=== PATIENT | female | born 1950 | race Caucasian/White ===

== ENCOUNTER 2018-11-02 02:01 | Inpatient (IN) | payer BC, MEDICARE, OTHER ==
--- NOTE | 2018-11-02 02:46 | ED ---
Nausea/Vomiting/Diarrhea HPI - General Chief complaint: Nausea/Vomiting/Diarrhea Stated complaint: nauseous, vomiting Time Seen by Provider: 11/02/18 02:36 Source: patient Mode of arrival: wheelchair Limitations: no limitations - History of Present Illness Initial comments: Angela is a pleasant 67-year-old female presents the emergency department today for evaluation of nausea vomiting and concern for dehydration and narcotic withdrawal. Patient reports that on Saturday she was getting her hair done when another person at the salon seem to have a GI illness. She reports she came home at night and developed nausea and vomiting. Patient reports she's been vomiting since Saturday. She states that today she has not been able to hold down any by mouth intake, she continues taking despite not being able to vomit. Patient states that she takes [place] and morphine orally daily and is concerned she may be withdrawing because she hasn't been able to take her medications and multiple days. She has no history of GI illness, she has no history of inflammatory or irritable bowel. She has no history of any surgeries in the abdomen. - Related Data Previous Rx's Medication Instructions Recorded Ondansetron [Zofran ODT] 4 mg PO Q8HR #12 tab 11/02/18 Allergies Allergy/AdvReac Type Severity Reaction Status Date / Time aspirin Allergy Rash/Hives Verified 11/02/18 03:24 Review of Systems ROS Statement: Those systems with pertinent positive or pertinent negative responses have been documented in the HPI. ROS Other: All systems not noted in ROS Statement are negative. Past Medical History Past Medical History: Fibromyalgia, Osteoarthritis (OA) Additional Past Medical History / Comment(s): DJD History of Any Multi-Drug Resistant Organisms: None Reported Past Surgical History: Hysterectomy, Tonsillectomy Past Psychological History: Depression Smoking Status: Former smoker Past Alcohol Use History: None Reported Past Drug Use History: None Reported General Exam - General Exam Comments Initial Comments: Physical Exam GENERAL: Mildly dehydrated uncomfortable appearance HENT: Normocephalic, Atraumatic. EYES: PERRL, EOMI PULMONARY: Unlabored respirations. No audible rales rhonchi or wheezing was noted. CARDIOVASCULAR: There is a regular rate and rhythm without any murmurs gallops or rubs. ABDOMEN: Soft and nontender with normal bowel sounds. SKIN: Skin is clear with no lesions or rashes and otherwise unremarkable. : Deferred NEUROLOGIC: Patient is alert and oriented x3. Moving all extremities spontaneously MUSCULOSKELETAL: Normal extremities with adequate strength and full range of motion. No lower extremity swelling or edema. No calf tenderness. PSYCHIATRIC: Normal psychiatric evaluation. Limitations: no limitations Limitations: no limitations Course Vital Signs 11/02/18 11/02/18 02:14 06:00 Temperature 98.3 F 100.3 F H Pulse Rate 102 H 90 Respiratory 20 17 Rate Blood Pressure 193/93 O2 Sat by Pulse 98 96 Oximetry Medical Decision Making - Medical Decision Making The patient was seen and evaluated history is obtained from patient Patient with 4 days of nausea and vomiting, concern for dehydration as well as narcotic withdrawal Labs with leukocytosis, elevated hemoglobin and hematocrit consistent with hemoconcentration Bili and lipase are mildly elevated however patient is not having any abdominal pain just nausea and vomiting Results were discussed with the patient, I offered the patient observation for further evaluation including possible ultrasound of the abdomen, continued fluids and IV narcotics however patient would much prefer to be discharged home and she is feeling okay at this time. Patient vital signs were reviewed, she is hypertensive and temperature is elevated at 100.3. I again tried to encourage the patient to stay for further evaluation however she is unwilling. Given that the patient is likely withdrawing from her narcotics that additional dose of IV narcotics were given and IV fluid bolus was initiated. She received additional IV narcotics and IV fluids upon reevaluation she remains hypertensive. At this time patient is agreeable to admission to the hospital for further evaluation including ultrasound and continued IV fluids. - Lab Data Result diagrams: 11/02/18 02:52 11/02/18 02:52 Lab Results 11/02/18 11/02/18 11/02/18 Range/Units 02:52 02:52 04:55 WBC 19.8 H (3.8-10.6) k/uL RBC 5.47 H (3.80-5.40) m/uL Hgb 16.1 H (11.4-16.0) gm/dL Hct 47.0 H (34.0-46.0) % MCV 85.9 (80.0-100.0) fL MCH 29.4 (25.0-35.0) pg MCHC 34.2 (31.0-37.0) g/dL RDW 14.9 (11.5-15.5) % Plt Count 358 (150-450) k/uL Neutrophils % 82 % Lymphocytes % 11 % Monocytes % 5 % Eosinophils % 1 % Basophils % 0 % Neutrophils # 16.2 H (1.3-7.7) k/uL Lymphocytes # 2.2 (1.0-4.8) k/uL Monocytes # 1.0 (0-1.0) k/uL Eosinophils # 0.2 (0-0.7) k/uL Basophils # 0.0 (0-0.2) k/uL Sodium 136 L (137-145) mmol/L Potassium 3.5 (3.5-5.1) mmol/L Chloride 100 (98-107) mmol/L Carbon Dioxide 19 L (22-30) mmol/L Anion Gap 17 mmol/L BUN 16 (7-17) mg/dL Creatinine 0.54 (0.52-1.04) mg/dL Est GFR (CKD-EPI)AfAm >90 (>60 ml/min/1.73 sqM) Est GFR (CKD-EPI)NonAf >90 (>60 ml/min/1.73 sqM) Glucose 207 H (74-99) mg/dL Calcium 10.7 H (8.4-10.2) mg/dL Total Bilirubin 2.3 H (0.2-1.3) mg/dL AST 29 (14-36) U/L ALT 31 (9-52) U/L Alkaline Phosphatase 90 (38-126) U/L Total Protein 8.1 (6.3-8.2) g/dL Albumin 5.0 (3.5-5.0) g/dL Amylase 71 (30-110) U/L Lipase 317 H (23-300) U/L Urine Color Urine Appearance (Clear) Urine pH (5.0-8.0) Ur Specific [place] (1.001-1.035) Urine Protein (Negative) Urine Glucose (UA) (Negative) Urine Ketones (Negative) Urine Blood (Negative) Urine Nitrite (Negative) Urine Bilirubin (Negative) Urine Urobilinogen (<2.0) mg/dL Ur Leukocyte Esterase (Negative) Urine RBC (0-5) /hpf Urine WBC (0-5) /hpf Urine Bacteria (None) /hpf Urine Mucus (None) /hpf Influenza Type A RNA Not Detected (Not Detectd) Influenza Type B (PCR) Not Detected (Not Detectd) 11/02/18 Range/Units 06:15 WBC (3.8-10.6) k/uL RBC (3.80-5.40) m/uL Hgb (11.4-16.0) gm/dL Hct (34.0-46.0) % MCV (80.0-100.0) fL MCH (25.0-35.0) pg MCHC (31.0-37.0) g/dL RDW (11.5-15.5) % Plt Count (150-450) k/uL Neutrophils % % Lymphocytes % % Monocytes % % Eosinophils % % Basophils % % Neutrophils # (1.3-7.7) k/uL Lymphocytes # (1.0-4.8) k/uL Monocytes # (0-1.0) k/uL Eosinophils # (0-0.7) k/uL Basophils # (0-0.2) k/uL Sodium (137-145) mmol/L Potassium (3.5-5.1) mmol/L Chloride (98-107) mmol/L Carbon Dioxide (22-30) mmol/L Anion Gap mmol/L BUN (7-17) mg/dL Creatinine (0.52-1.04) mg/dL Est GFR (CKD-EPI)AfAm (>60 ml/min/1.73 sqM) Est GFR (CKD-EPI)NonAf (>60 ml/min/1.73 sqM) Glucose (74-99) mg/dL Calcium (8.4-10.2) mg/dL Total Bilirubin (0.2-1.3) mg/dL AST (14-36) U/L ALT (9-52) U/L Alkaline Phosphatase (38-126) U/L Total Protein (6.3-8.2) g/dL Albumin (3.5-5.0) g/dL Amylase (30-110) U/L Lipase (23-300) U/L Urine Color Yellow Urine Appearance Clear (Clear) Urine pH 6.5 (5.0-8.0) Ur Specific [place] 1.021 (1.001-1.035) Urine Protein 2+ H (Negative) Urine Glucose (UA) 3+ H (Negative) Urine Ketones 1+ H (Negative) Urine Blood Moderate H (Negative) Urine Nitrite Negative (Negative) Urine Bilirubin Negative (Negative) Urine Urobilinogen <2.0 (<2.0) mg/dL Ur Leukocyte Esterase Trace H (Negative) Urine RBC 6 H (0-5) /hpf Urine WBC 4 (0-5) /hpf Urine Bacteria Rare H (None) /hpf Urine Mucus Few H (None) /hpf Influenza Type A RNA (Not Detectd) Influenza Type B (PCR) (Not Detectd) Disposition Clinical Impression: Nausea and vomiting, Leukocytosis, Dehydration, HTN (hypertension), Narcotic withdrawal, Elevated bilirubin, Hyperglycemia Disposition: HOME SELF-CARE Condition: Stable Instructions (If sedation given, give patient instructions): Acute Nausea and Vomiting (ED) Prescriptions: Ondansetron [Zofran ODT] 4 mg PO Q8HR #12 tab Is patient prescribed a controlled substance at d/c from ED?: No Referrals: Teto Oneil MD [Primary Care Provider] - 1-2 days
[2018-11-02] MEDS ORDERED: SODIUM CHLORIDE 0.9% 1,000 ML IV ONE (02:56)
[2018-11-02] MEDS ORDERED: ONDANSETRON 4 MG/2 ML VIAL IVP STA (02:56)
[2018-11-02] MEDS ORDERED: FAMOTIDINE 20 MG/2 ML VIAL IV STA (02:56)
[2018-11-02] MEDS ORDERED: MORPHINE SULFATE 4 MG/ML SYRINGE IVP STA ×2 (02:58→06:01)
[2018-11-02 03:07] LABS: Basophils % (A) 0 %; Eosinophils # (A) 0.2 k/uL (0-0.7); Eosinophils % (A) 1 %; HGB 16.1 gm/dL (11.4-16.0); Lymphocytes # (A) 2.2 k/uL (1.0-4.8); Lymphocytes % (A) 11 %; MCH 29.4 pg (25.0-35.0); MCHC 34.2 g/dL (31.0-37.0); MCV 85.9 fL (80.0-100.0); Mean Platelet Volume 6.9; Monocytes % (A) 5 %; Neutrophils # (A) 16.2 k/uL (1.3-7.7); Neutrophils % (A) 82 %; Platelet Count 358 k/uL (150-450); RBC 5.47 m/uL (3.80-5.40); RDW 14.9 % (11.5-15.5); WBC 19.8 k/uL (3.8-10.6)
[2018-11-02 03:18] LABS: ALT 31 U/L (9-52); AST 29 U/L (14-36); Alkaline Phosphatase 90 U/L (38-126); Amylase 71 U/L (30-110); Anion Gap 17 mmol/L; Blood Urea Nitrogen 16 mg/dL (7-17); Calcium 10.7 mg/dL (8.4-10.2); Carbon Dioxide 19 mmol/L (22-30); Chloride 100 mmol/L (98-107); Glucose 207 mg/dL (74-99); Lipase 317 U/L (23-300); Potassium 3.5 mmol/L (3.5-5.1); Sodium 136 mmol/L (137-145); Total Bilirubin 2.3 mg/dL (0.2-1.3); Total Protein 8.1 g/dL (6.3-8.2)
--- NOTE | 2018-11-02 04:13 | XR ---
EXAM: XR Abdomen, 3 Views CLINICAL HISTORY: c/o nausea and vomiting X4 days TECHNIQUE: Multiple frontal views of the abdomen/pelvis were obtained. COMPARISON: No relevant prior studies available. FINDINGS: Intraperitoneal space: No definitive evidence of free air. Gastrointestinal tract: Nonspecific bowel gas pattern without evidence of obstruction. Bones/joints: Mild/moderate degenerative changes involving the osseous structures. Vasculature: Probable phleboliths within the pelvis. IMPRESSION: Nonspecific bowel gas pattern without evidence of obstruction.
[2018-11-02] MEDS ORDERED: METOCLOPRAMIDE 5 MG/ML 2 ML VIAL IVP STA (04:31)
[2018-11-02] MEDS ORDERED: diphenhydrAMINE 50 MG/ML 1 ML VIAL IVP STA (04:31)
[2018-11-02 06:27] LABS: Appearance,Urine Clear (Clear); Bacteria,Urine Rare /hpf; Bilirubin,Urine Negative (Negative); Blood,Urine Moderate (Negative); Color,Urine Yellow; Glucose,Urine (UA) 3+ (Negative); Ketones,Urine 1+ (Negative); Leukocyte Esterase,Urine Trace (Negative); Mucus,Urine Few /hpf; Nitrite,Urine Negative (Negative); PH, Urine 6.5 (5.0-8.0); Protein,Urine 2+ (Negative); RBC,Urine 6 /hpf (0-5); Specific Gravity,Urine 1.021 (1.001-1.035); Urobilinogen,Urine <2.0 mg/dL (<2.0); WBC,Urine 4 /hpf (0-5)
[2018-11-02] MEDS ORDERED: NALOXONE 0.4 MG/ML 1 ML VIAL IV PRN (06:47)
[2018-11-02] MEDS ORDERED: cloNIDine HCL 0.1 MG TAB PO STA (06:51)
[2018-11-02] MEDS ORDERED: cloNIDine 0.1 MG/24HR PATCH TRANSDERM SCH (07:30)
--- NOTE | 2018-11-02 07:44 | US ---
EXAMINATION TYPE: US abdomen complete DATE OF EXAM: 11/02/2018 COMPARISON: NONE CLINICAL HISTORY: Pain. Pt states N&V x 5 days EXAM MEASUREMENTS: Liver Length: 18.8 cm Gallbladder Wall: 0.2 cm CBD: 1.0 cm Right Kidney: 10.6 x 5.0 x 5.8 cm Left Kidney: 12.0 x 5.3 x 4.7 cm Visualized portions of aorta and IVC are normal. Pancreas: wnl, tail obscured by overlying bowel gas Liver: Enlarged, heterogeneous, difficult to penetrate, possible fatty sparing near GB Gallbladder: wnl Evidence for sonographic Navas's sign: No CBD: ?Dilated Spleen: Unable to visualize with certainty Right Kidney: Lobulated contour, otherwise appeared wnl Left Kidney: Lobulated contour, otherwise appeared wnl Upper IVC: wnl Abd Aorta: Distal portion gassed out Limited views of the pancreas is unremarkable. The liver is prominent measuring 19 cm. It is echogenic and likely fatty infiltrated. The gallbladder is unremarkable without evidence of cholelithiasis. The distal common hepatic duct me asures 1 cm which is dilated. The gallbladder wall measures 2 mm. There is no sonographic Navas's si gn. The spleen is not visualized. Both kidneys are unremarkable. Visualized portions of aorta and IVC are normal. IMPRESSION: 1. HEPATOMEGALY AND FATTY INFILTRATION OF THE LIVER. 2. PROMINENCE OF THE DISTAL COMMON HEPATIC DUCT. ERCP VERSUS MRCP WOULD BE SUGGESTED.
[2018-11-02] MEDS: MORPHINE SULFATE 4 MG/ML SYRINGE IV PRN ×2 (14:22→21:10)
[2018-11-02] MEDS: SODIUM CHLORIDE 0.9% 1,000 ML IV SCH (14:35)
[2018-11-02] MEDS: ENOXAPARIN 40 MG/0.4 ML SYRINGE SQ SCH (17:33)
--- NOTE | 2018-11-02 17:50 | HP ---
HISTORY AND PHYSICAL DATE OF ADMISSION: November 02, 2018. DATE OF SERVICE: November 02, 2018. PRESENT COMPLAINT: Nausea, vomiting and diarrhea. HISTORY OF PRESENTING COMPLAINT: Pleasant 67-year-old patient of Dr. Oneil from [place]. Chronic stable medical conditions include fibromyalgia, osteoarthritis, anxiety, depression. The patient does take medicines for chronic pain. 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 By the time patient got home, she started having nausea, vomiting, not feeling well. Continued for 3 days. Having some low-grade chills, abdominal discomfort. The patient's last bowel movement was day before and she was vomiting up until this morning, could not keep anything down, weak, tired, rundown and exhausted. Was admitted to the ER, started on IV fluids. REVIEW OF SYSTEMS: CONSTITUTIONAL: Weak and tired, rundown. HEENT: None. RESPIRATORY none. CARDIOVASCULAR: None. GASTROINTESTINAL: As above. GENITOURINARY none. MUSCULOSKELETAL: Pain in multiple joints. DERMATOLOGICAL, HEMATOLOGIC, LYMPHATICS: none. PSYCHIATRY none. NEUROLOGICAL: None. PAST MEDICAL HISTORY: Asthma, fibromyalgia, osteoarthritis, DJD, melanoma. PAST SURGICAL HISTORY: Hysterectomy, heel spur, melanoma removed from the back. PSYCH HISTORY: Anxiety, depression. SOCIAL HISTORY: Patient did smoke in the past. . FAMILY HISTORY: Coronary artery disease. HOME MEDICATIONS: 1. Trazodone 100 mg q.h.s. 2. MS Contin 60 mg q.12h. 3. [place] 7.5 one tab t.i.d. 4. Zofran 4 mg q.8h p.r.n. ALLERGIES: ASPIRIN. PHYSICAL EXAMINATION: VITAL SIGNS: Vital signs on presentation 100.3, pulse 102, respiration 20, blood pressure 176/82. Pulse ox 98% on room air. GENERAL APPEARANCE: Well built, BMI 30.7. Lying in bed, tired-appearing. EYES: Pupils are equal. Conjunctivae normal. HEENT: External appearance of nose and ears normal. Oral cavity dry. Mucous membranes moist. NECK: JVD not raised. Mass not palpable. RESPIRATORY: Effort normal.. LUNGS: Fair air entry. CARDIOVASCULAR: First and second sounds normal. No edema. ABDOMEN: Soft, nontender. Liver and spleen not palpable. LYMPHATICS: No lymph nodes palpable in the neck and axilla. PSYCHIATRY: Alert and oriented x3. Mood and affect normal. NEUROLOGICAL: Pupils equal. Cranial nerves grossly intact. Power and sensation grossly intact. INVESTIGATIONS: White count 19.8, hemoglobin 16.1, potassium 3.5. BUN and creatinine normal. EKG tracing personally reviewed by me, normal sinus rhythm. KUB x-ray personally reviewed by me shows slightly dilated bowel loops with no air-fluid levels. Did have an abdominal ultrasound that shows hepatomegaly and some fatty infiltration of the liver. ASSESSMENT: 1. Acute severe gastroenteritis with a low-grade fever and leukocytosis could be secondary to bacterial infection. 2. Chronic fibromyalgia. 3. Primary osteoarthritis multiple joints. 4. Chronic pain syndrome for which patient takes pain medications. 5. Hypercalcemia. Calcium was 10.7 from dehydration. 6. Metabolic acidosis. PLAN: Patient is put on clear liquids. We will hydrate the patient. Lovenox for DVT prophylaxis. Empirically put the patient on Flagyl and Cipro to cover any bacterial component. Care was discussed with the patient. Questions were answered. MMODL / IJN: [id number] /
[2018-11-02] MEDS: CIPROFLOXACIN HCL 500 MG TAB PO SCH (18:00)
[2018-11-02] MEDS: metroNIDAZOLE 500 MG TAB PO SCH ×2 (18:00→23:49)
[2018-11-02] MEDS ORDERED: traZODone HCL 100 MG TAB PO SCH (21:00)
[2018-11-02 21:43] VITALS: RESP 16
[2018-11-02] MEDS: ONDANSETRON 4 MG/2 ML VIAL IVP PRN (23:24)
[2018-11-03] MEDS: MORPHINE SULFATE 4 MG/ML SYRINGE IV PRN ×2 (01:22→05:40)
[2018-11-03] MEDS: SODIUM CHLORIDE 0.9% 1,000 ML IV SCH (01:22)
[2018-11-03 05:23] VITALS: BP 192/83; PULSE 92; TEMP 98.5
[2018-11-03] MEDS ORDERED: MORPHINE SULFATE ER 60 MG TABLET PO PRN (07:43)
[2018-11-03] MEDS ORDERED: PROCHLORPERAZINE 10 MG TAB PO PRN (07:45)
[2018-11-03] MEDS ORDERED: PROCHLORPERAZINE 5 MG TAB PO PRN (08:08)
[2018-11-03] MEDS: HYDROcodone/APAP 7.5-325MG 1 EACH TAB PO PRN ×2 (08:09→13:34)
[2018-11-03] MEDS: metroNIDAZOLE 500 MG TAB PO SCH (08:10)
[2018-11-03] MEDS: ONDANSETRON 4 MG/2 ML VIAL IVP PRN (08:10)
[2018-11-03] MEDS: ENOXAPARIN 40 MG/0.4 ML SYRINGE SQ SCH (08:10)
[2018-11-03] MEDS: CIPROFLOXACIN HCL 500 MG TAB PO SCH (08:11)
[2018-11-03 08:25] LABS: Anion Gap 14 mmol/L; Blood Urea Nitrogen 8 mg/dL (7-17); Calcium 9.2 mg/dL (8.4-10.2); Carbon Dioxide 23 mmol/L (22-30); Chloride 100 mmol/L (98-107); Glucose 138 mg/dL (74-99); Potassium 2.9 mmol/L (3.5-5.1); Sodium 137 mmol/L (137-145)
[2018-11-03] MEDS ORDERED: cloNIDine 0.1 MG/24HR PATCH TRANSDERM SCH (09:00)
[2018-11-03] MEDS ORDERED: METOPROLOL TARTRATE 25 MG TAB PO STA (11:30)
--- NOTE | 2018-11-04 08:49 | DS ---
DISCHARGE SUMMARY DATE OF ADMISSION: 11/02/2018 DATE OF DISCHARGE: 11/03/2018 FINAL DIAGNOSES: 1. Acute severe gastroenteritis probably bacterial. 2. Chronic fibromyalgia. 3. Primary osteoarthritis multiple joints. 4. Chronic pain syndrome for which patient takes pain medications. 5. Hypercalcemia from dehydration. 6. Metabolic acidosis. HOSPITAL COURSE: This patient presented with acute severe gastroenteritis with nausea, vomiting, diarrhea, fever and white count. Empirically put on antibiotics. Doing better today, tolerating very light diet. Told her to keep up with the same. Nausea, vomiting had settled down. She was having some metallic taste from the Flagyl. Care was discussed at length with the patient. On examination, temperature 98.5, pulse 92, respiration 16, blood pressure recheck was pending. ABDOMEN: Soft, nontender. DISCHARGE MEDICATIONS: 1. [place] 7.5 one tab p.o. t.i.d. 2. MS Contin 60 mg q.12. 3. Zofran 4 mg q.8, twelve tablets. 4. Trazodone 100 mg q.h.s. 5. Cipro 500 mg b.i.d. 4 tablets. 6. Lopressor 25 mg b.i.d. 7. Flagyl 500 mg p.o. t.i.d. 8. Potassium 40 mEq x2 tablets. Follow up with Dr. Oneil in 3 days. Patient to have a BMP checked in 24 to 48 hours. MMODL / IJN: [id number] /
== END 2018-11-03 14:15 | disposition home or self-care (01) | DRG 372 ==
LOC: EC 02:01 → 3NMEDONC 06:47
PROVIDERS: ADMIT Hospitalist; ATTEND Hospitalist
DX: A04.9 Bacterial intestinal infection, unspecified (principal); E87.2 Acidosis; F11.23 Opioid dependence with withdrawal; J45.909 Unspecified asthma, uncomplicated; E83.52 Hypercalcemia; E86.0 Dehydration; F32.9 Major depressive disorder, single episode, unspecified; F41.9 Anxiety disorder, unspecified; G89.4 Chronic pain syndrome; I10 Essential (primary) hypertension; M15.9 Polyosteoarthritis, unspecified; M79.7 Fibromyalgia; E80.6 Other disorders of bilirubin metabolism; Z82.49 Family history of ischemic heart disease and other diseases of the circulatory system; Z85.820 Personal history of malignant melanoma of skin; Z87.891 Personal history of nicotine dependence; Z90.710 Acquired absence of both cervix and uterus; Z88.6 Allergy status to analgesic agent
CPT/HCPCS: 36415; 74018; 76700; 80048; 80053; 81001; 82150; 83690; 85025; 87502; 93005; 96361; 96374; 96375; 96376; 99285

== ENCOUNTER 2022-02-13 09:59 | Emergency (ER) | payer MEDICARE ==
[2022-02-13 10:05] VITALS: RESP 18; TEMP 98
[2022-02-13] MEDS ORDERED: SODIUM CHLORIDE 0.9% 2,000 ML IV STA (10:26)
[2022-02-13] MEDS ORDERED: KETOROLAC 15 MG/ML 1 ML VIAL IVP STA (10:26)
[2022-02-13] MEDS ORDERED: ONDANSETRON 4 MG/2 ML VIAL IVP STA (10:27)
[2022-02-13 10:48] LABS: Basophils % (A) 0 %; Eosinophils # (A) 0.2 k/uL (0-0.7); Eosinophils % (A) 1 %; HCT 50.3 % (34.0-46.0); HGB 17.1 gm/dL (11.4-16.0); Lymphocytes # (A) 2.1 k/uL (1.0-4.8); Lymphocytes % (A) 12 %; MCHC 34.1 g/dL (31.0-37.0); MCV 88.2 fL (80.0-100.0); Mean Platelet Volume 6.8; Monocytes # (A) 0.9 k/uL (0-1.0); Monocytes % (A) 5 %; Neutrophils # (A) 13.8 k/uL (1.3-7.7); Neutrophils % (A) 80 %; Platelet Count 391 k/uL (150-450); RBC 5.71 m/uL (3.80-5.40); RDW 13.3 % (11.5-15.5); WBC 17.3 k/uL (3.8-10.6)
[2022-02-13] MEDS ORDERED: CYCLOBENZAPRINE 5 MG TAB PO STA (10:53)
--- NOTE | 2022-02-13 10:53 | ED ---
General Adult HPI - General Chief complaint: Recheck/Abnormal Lab/Rx Stated complaint: med withdrawal Time Seen by Provider: 02/13/22 10:07 Source: patient Mode of arrival: ambulatory Limitations: no limitations - History of Present Illness Initial comments: Patient is a 71-year-old female with past medical history of asthma, fibromyalgia, osteoarthritis, and chronic back pain who presents to the emergency department with a chief complaint of opioid withdrawal. Patient states she is prescribed [place] 7.5325 3 times a day daily and morphine 60 mg daily. States her primary care provider Dr. Oneil is being investigated and could not fill her prescription. Patient states the last time she took all of her daily doses was 8 days ago. She then decided to wean off of the opioids and quit entirely 4 days ago. Patient states since stopping the opioids she has experienced bad muscle cramps, nausea and vomiting. States she has had little ability to tolerate oral intake. Denies fever, chills, upper respiratory symptoms, cough, shortness of breath, chest pain, palpitations, abdominal pain, burning with urination, and other concerns. Patient states she used to ride a motorcycle as well as horses and fell off her horse several years ago which caused injury from her neck down to her tailbone. She denies any new injury or changes in pain. - Related Data Home Medications Medication Instructions Recorded Confirmed Hydrocodone/Acetaminophen [[place] 1 tab PO TID 11/02/18 11/02/18 7.5-325] Morphine Sulfate ER [Ms Contin] 60 mg PO Q12HR 11/02/18 11/02/18 traZODone HCL 100 mg PO HS 11/02/18 11/02/18 Previous Rx's Medication Instructions Recorded Ondansetron [Zofran ODT] 4 mg PO Q8HR #12 tab 11/02/18 Ciprofloxacin HCl [Cipro] 500 mg PO BID #4 tab 11/03/18 Metoprolol Tartrate [Lopressor] 25 mg PO BID #30 tablet 11/03/18 Potassium Chloride ER [K-Dur 20] 40 meq PO Q4H #4 tab 11/03/18 metroNIDAZOLE [Flagyl] 500 mg PO TID #6 tab 11/03/18 Cyclobenzaprine [Flexeril] 5 mg PO TID PRN #15 tablet 02/13/22 Ketorolac [Toradol] 10 mg PO Q8HR PRN #22 tab 02/13/22 Ondansetron Odt [Zofran Odt] 4 mg PO Q8HR PRN #42 tab 02/13/22 Allergies Allergy/AdvReac Type Severity Reaction Status Date / Time aspirin Allergy Rash/Hives Verified 02/13/22 10:05 Review of Systems ROS Statement: Those systems with pertinent positive or pertinent negative responses have been documented in the HPI. ROS Other: All systems not noted in ROS Statement are negative. Past Medical History Past Medical History: Asthma, Cancer, Fibromyalgia, Osteoarthritis (OA) Additional Past Medical History / Comment(s): DJD melanoma History of Any Multi-Drug Resistant Organisms: None Reported Past Surgical History: Hysterectomy Additional Past Surgical History / Comment(s): heel spur, melanoma removed from back Past Anesthesia/Blood Transfusion Reactions: No Reported Reaction Past Psychological History: Anxiety, Depression Smoking Status: Never smoker Past Alcohol Use History: None Reported Past Drug Use History: None Reported - Past Family History Father Family Medical History: Coronary Artery Disease (CAD) General Exam Limitations: no limitations General appearance: alert, in no apparent distress Head exam: Present: atraumatic, normocephalic, normal inspection Eye exam: Present: normal appearance, PERRL, EOMI. Absent: scleral icterus, conjunctival injection, periorbital swelling ENT exam: Absent: mucous membranes moist Respiratory exam: Present: normal lung sounds bilaterally. Absent: respiratory distress, wheezes, rales, rhonchi, stridor Cardiovascular Exam: Present: normal rhythm, tachycardia, normal heart sounds. Absent: regular rate, systolic murmur, diastolic murmur, rubs, gallop, clicks GI/Abdominal exam: Present: soft, normal bowel sounds. Absent: distended, tenderness, guarding, rebound, rigid Neurological exam: Present: alert, oriented X3, CN II-XII intact Psychiatric exam: Present: normal affect, normal mood Skin exam: Present: warm, dry, intact, normal color. Absent: rash Course Vital Signs 02/13/22 02/13/22 02/13/22 10:00 12:15 13:39 Temperature 98 F Pulse Rate 102 H 97 91 Respiratory 18 18 18 Rate Blood Pressure 192/98 187/102 169/90 O2 Sat by Pulse 98 98 97 Oximetry Medical Decision Making - Medical Decision Making This is a 71-year-old female who presents with muscle cramping, nausea, and vom iting with recent cessation of opioids. Thorough history and examination were performed. She appears to be uncomfortable. Blood pressure 192/98, similar to her last visit in October of 2018. She is minimally tachycardic at 102. Laboratory studies obtained. Significant for leukocytosis 17.3. Hemoglobin elevated at 17.1, very likely due to dehydration. Urinalysis indicative of dehydration with 4+ ketones, 2+ glucose, and 3+ protein. Patient given large fluid bolus, Zofran, Toradol, and Flexeril which markedly improved her symptoms. Her pulse improved. Patient's blood pressure was continuously elevated in the emergency department. She was given Catapres which did improve her pressure. Patient and I discussed admission to the hospital for observation versus managing symptoms at home. Patient feels that she will be more comfortable at home. She will be discharged with Zofran, Toradol, and Flexeril. We discussed her home medications in detail. States does not like being on narcotic pain medication. Discussed different options including renewals specialist and pain management. Patient will be referred to pain specialist. She is encouraged to follow-up with her primary care provider or establish a new one if needed to manage her blood pressure. Dr. Casarez is my attending. - Lab Data Result diagrams: 02/13/22 10:40 02/13/22 11:13 Lab Results 02/13/22 02/13/22 02/13/22 Range/Units 10:40 10:40 11:13 WBC 17.3 H (3.8-10.6) k/uL RBC 5.71 H (3.80-5.40) m/uL Hgb 17.1 H (11.4-16.0) gm/dL Hct 50.3 H (34.0-46.0) % MCV 88.2 (80.0-100.0) fL MCH 30.0 (25.0-35.0) pg MCHC 34.1 (31.0-37.0) g/dL RDW 13.3 (11.5-15.5) % Plt Count 391 (150-450) k/uL MPV 6.8 Neutrophils % 80 % Lymphocytes % 12 % Monocytes % 5 % Eosinophils % 1 % Basophils % 0 % Neutrophils # 13.8 H (1.3-7.7) k/uL Lymphocytes # 2.1 (1.0-4.8) k/uL Monocytes # 0.9 (0-1.0) k/uL Eosinophils # 0.2 (0-0.7) k/uL Basophils # 0.0 (0-0.2) k/uL Sodium 135 L (137-145) mmol/L Potassium 3.4 L (3.5-5.1) mmol/L Chloride 100 (98-107) mmol/L Carbon Dioxide 21 L (22-30) mmol/L Anion Gap 14 mmol/L BUN 13 (7-17) mg/dL Creatinine 0.52 (0.52-1.04) mg/dL Est GFR (CKD-EPI)AfAm >90 (>60 ml/min/1.73 sqM) Est GFR (CKD-EPI)NonAf >90 (>60 ml/min/1.73 sqM) Glucose 185 H (74-99) mg/dL Calcium 9.2 (8.4-10.2) mg/dL Magnesium 2.1 (1.6-2.3) mg/dL Total Bilirubin 2.1 H (0.2-1.3) mg/dL AST 24 (14-36) U/L ALT 29 (4-34) U/L Alkaline Phosphatase 81 (38-126) U/L Creatine Kinase 78 (30-135) U/L Total Protein 7.6 (6.3-8.2) g/dL Albumin 4.7 (3.5-5.0) g/dL Urine Color Yellow Urine Appearance Clear (Clear) Urine pH 6.0 (5.0-8.0) Ur Specific [place] 1.028 (1.001-1.035) Urine Protein 3+ H (Negative) Urine Glucose (UA) 2+ H (Negative) Urine Ketones 4+ H (Negative) Urine Blood Moderate H (Negative) Urine Nitrite Negative (Negative) Urine Bilirubin Negative (Negative) Urine Urobilinogen 2.0 (<2.0) mg/dL Ur Leukocyte Esterase Small H (Negative) Urine RBC 13 H (0-5) /hpf Urine WBC 5 (0-5) /hpf Ur Squamous Epith Cells 1 (0-4) /hpf Urine Mucus Few H (None) /hpf Disposition Clinical Impression: Opioid withdrawal, Nausea & vomiting, Body aches Disposition: HOME SELF-CARE Condition: Fair Additional Instructions: Please take medication as directed. Do not take other anti-inflammatory medication such as Motrin, Aleve, Advil, and Excedrin. It is very important to drink a lot of water. If you are not eating foods please drink Pedialyte or Gatorade so you have an electrolyte/calorie intake. Please follow-up with primary care provider. If you are unable to see your primary care provider you'll need to call her insurance to see what offices are taking new patients. It is important to establish new primary care to manage your symptoms as well as blood pressure management. Schedule an appointment with pain specialist listed on discharge papers in one to 2 days. Return to the emergency department if you experience new, concerning, or worsening symptoms. Prescriptions: Cyclobenzaprine [Flexeril] 5 mg PO TID PRN #15 tablet PRN Reason: Pain Ketorolac [Toradol] 10 mg PO Q8HR PRN #22 tab PRN Reason: Pain Ondansetron Odt [Zofran Odt] 4 mg PO Q8HR PRN #42 tab PRN Reason: Nausea Is patient prescribed a controlled substance at d/c from ED?: No Referrals: None,Stated [Primary Care Provider] - 1-2 days Jorge Luis Crenshaw MD [STAFF PHYSICIAN] - 1-2 days Time of Disposition: 13:07
[2022-02-13 11:30] LABS: ALT 29 U/L (4-34); AST 24 U/L (14-36); African American GFR (CKD) >90 (>60 ml/min/1.73 sqM); Albumin 4.7 g/dL (3.5-5.0); Alkaline Phosphatase 81 U/L (38-126); Anion Gap 14 mmol/L; Blood Urea Nitrogen 13 mg/dL (7-17); Calcium 9.2 mg/dL (8.4-10.2); Carbon Dioxide 21 mmol/L (22-30); Chloride 100 mmol/L (98-107); Creatine Kinase 78 U/L (30-135); Glucose 185 mg/dL (74-99); Magnesium 2.1 mg/dL (1.6-2.3); Non-African American GFR(CKD) >90 (>60 ml/min/1.73 sqM); Potassium 3.4 mmol/L (3.5-5.1); Sodium 135 mmol/L (137-145); Total Bilirubin 2.1 mg/dL (0.2-1.3); Total Protein 7.6 g/dL (6.3-8.2)
[2022-02-13 11:44] LABS: Appearance,Urine Clear (Clear); Bilirubin,Urine Negative (Negative); Blood,Urine Moderate (Negative); Color,Urine Yellow; Glucose,Urine (UA) 2+ (Negative); Leukocyte Esterase,Urine Small (Negative); Mucus,Urine Few /hpf; Nitrite,Urine Negative (Negative); Protein,Urine 3+ (Negative); RBC,Urine 13 /hpf (0-5); Specific Gravity,Urine 1.028 (1.001-1.035); Squamous Epithelial Cell,Urine 1 /hpf (0-4); WBC,Urine 5 /hpf (0-5)
[2022-02-13 11:55] LABS: Ketones,Urine 4+ (Negative)
[2022-02-13] MEDS ORDERED: cloNIDine HCL 0.2 MG TAB PO STA (12:46)
[2022-02-13 13:40] VITALS: BP 169/90; PULSE 91
== END 2022-02-13 13:59 | disposition home or self-care (01) ==
LOC: EC 09:59
DX: F11.23 Opioid dependence with withdrawal (principal); R11.2 Nausea with vomiting, unspecified; J45.909 Unspecified asthma, uncomplicated; Z88.6 Allergy status to analgesic agent
CPT/HCPCS: 36415; 80053; 82550; 83735; 85025; 81001; 99284; 96374; 96375; 96361; J2405; J1885

== ENCOUNTER 2022-04-05 09:13 | Emergency (ER) | payer OTHER, MEDICARE ==
[2022-04-05] MEDS ORDERED: KETOROLAC 15 MG/ML 1 ML VIAL IVP STA (11:03)
[2022-04-05 11:27] LABS: Basophils % (A) 1 %; Eosinophils # (A) 0.1 k/uL (0-0.7); Eosinophils % (A) 2 %; HCT 39.6 % (34.0-46.0); Lymphocytes # (A) 1.1 k/uL (1.0-4.8); Lymphocytes % (A) 15 %; MCH 30.3 pg (25.0-35.0); MCHC 33.3 g/dL (31.0-37.0); MCV 91.1 fL (80.0-100.0); Mean Platelet Volume 7.3; Monocytes # (A) 0.6 k/uL (0-1.0); Monocytes % (A) 8 %; Neutrophils # (A) 5.4 k/uL (1.3-7.7); Neutrophils % (A) 74 %; Platelet Count 248 k/uL (150-450); RBC 4.35 m/uL (3.80-5.40); RDW 14.2 % (11.5-15.5); WBC 7.3 k/uL (3.8-10.6)
[2022-04-05 11:35] LABS: HGB 13.2 gm/dL (11.4-16.0)
--- NOTE | 2022-04-05 11:39 | XR ---
EXAMINATION TYPE: XR chest 2V DATE OF EXAM: 04/05/2022 COMPARISON: NONE TECHNIQUE: PA and lateral views submitted. HISTORY: Pain FINDINGS: The lungs are clear and there is no pneumothorax, pleural effusion, or focal pneumonia. Atheroscler otic change aorta. Heart size normal. No overt failure. The shoulders. IMPRESSION: 1. No acute process.
[2022-04-05 11:42] LABS: ALT 60 U/L (4-34); AST 51 U/L (14-36); African American GFR (CKD) >90 (>60 ml/min/1.73 sqM); Alkaline Phosphatase 81 U/L (38-126); Anion Gap 10 mmol/L; Blood Urea Nitrogen 5 mg/dL (7-17); Calcium 9.3 mg/dL (8.4-10.2); Carbon Dioxide 25 mmol/L (22-30); Chloride 98 mmol/L (98-107); Glucose 162 mg/dL (74-99); Magnesium 2.2 mg/dL (1.6-2.3); Non-African American GFR(CKD) >90 (>60 ml/min/1.73 sqM); Potassium 3.9 mmol/L (3.5-5.1); Sodium 133 mmol/L (137-145); Total Bilirubin 1.2 mg/dL (0.2-1.3); Total Protein 6.3 g/dL (6.3-8.2)
[2022-04-05 11:45] LABS: INR 0.9 (<1.2); Partial Thromboplastin Time 22.6 sec (22.0-30.0); Prothrombin Time 10.3 sec (9.0-12.0)
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
[2022-04-05 14:46] VITALS: BP 160/83; PULSE 92; RESP 16; TEMP 97.8
== END 2022-04-05 14:45 | disposition home or self-care (01) ==
LOC: EC 09:13
DX: J06.9 Acute upper respiratory infection, unspecified (principal); Z88.6 Allergy status to analgesic agent; V89.2XXA Person injured in unspecified motor-vehicle accident, traffic, initial encounter; Y92.410 Unspecified street and highway as the place of occurrence of the external cause
CPT/HCPCS: 99285; 96374; 36415; 93005; 83880; 80053; 83735; 84484; 85025; 85610; 85730; 71046; 71275; J1885; Q9967